=== PATIENT | female | born 1955 | race Caucasian/White ===

== ENCOUNTER 2024-03-09 07:03 | Day surgery (SDC) | payer MEDICARE ==
[2024-03-09] MEDS ORDERED: Decadron 4 MG INJ IV ONE (07:04)
[2024-03-09] MEDS ORDERED: LIDOCAINE HCL 1% 50 MG/5 ML VL PF IJ ONE (07:04)
[2024-03-09] MEDS ORDERED: Sodium Chloride 0.9(Preservative Free) 10 ML IJ ONE (07:04)
[2024-03-09] MEDS ORDERED: Depo-Medrol 40 MG/ML IM ONE (07:04)
[2024-03-09] MEDS ORDERED: DIPRIVAN 200 MG/20 ML IV ONE (08:30)
--- NOTE | 2024-03-09 11:02 | XRAY ---
Indication: Bilateral piriformis injection. Intraoperative fluoroscopy provided for 22 seconds. 2 digital spot image submitted for interpretation demonstrates posterior needle tip projecting over the expected left and right piriformis. Small amount of contrast injected for needle tip placement. Correlate with intraoperative findings/report.
--- NOTE | 2024-03-09 11:02 | XRAY ---
Indication: Caudal DUNCAN. Intraoperative fluoroscopy provided for 19 seconds. 2 digital spot image submitted for interpretation demonstrates caudal needle tip projecting mid sacrum. Small amount of contrast injected for needle tip placement. Correlate with intraoperative findings/report.
--- NOTE | 2024-03-09 11:27 | XRAY ---
19 seconds of fluoroscopy was used in surgery for a caudal DUNCAN.
--- NOTE | 2024-03-09 11:28 | XRAY ---
22 seconds of fluoroscopy was used in surgery for a bilateral piriformis injection.
[2024-03-09] MEDS ORDERED: Lactated Ringers 1,000 ML IV ONE (11:45)
== END 2024-03-09 09:14 | disposition home or self-care (01) ==
LOC: SDC-PAIN 07:03
PROVIDERS: ATTEND Psychiatry & Neurology Pain Medicine
DX: M54.16 Radiculopathy, lumbar region (principal); M79.18 Myalgia, other site; E11.9 Type 2 diabetes mellitus without complications
CPT/HCPCS: 20553; 62323; 72170; 72220; 77002; 77003; 82947; J1010; J1100; J2001; J2704; Q9966

== ENCOUNTER 2024-04-20 08:09 | Day surgery (SDC) | payer MEDICARE ==
[2024-04-20] MEDS ORDERED: BUPIVACAINE 0.5% VIAL IJ ONE (08:10)
[2024-04-20] MEDS ORDERED: Depo-Medrol 40 MG/ML IM ONE (08:10)
[2024-04-20] MEDS ORDERED: Lactated Ringers 1,000 ML IV ONE (09:04)
[2024-04-20] MEDS ORDERED: DIPRIVAN 200 MG/20 ML IV ONE (09:51)
--- NOTE | 2024-04-20 10:52 | XRAY ---
Indication: Bilateral ischial bursa injection. Intraoperative fluoroscopy provided for 34 seconds. 2 digital spot images submitted for interpretation demonstrates posterior needle tip projecting over left and right ischial tuberosity. Small amount of contrast injected for needle tip placement with contrast. Correlate with intraoperative findings/report.
--- NOTE | 2024-04-20 12:25 | XRAY ---
34 seconds of fluoroscopy was used in surgery for a bilateral ischial bursa injection.
== END 2024-04-20 10:28 | disposition home or self-care (01) ==
LOC: SDC-PAIN 08:09
PROVIDERS: ATTEND Psychiatry & Neurology Pain Medicine
DX: M70.62 Trochanteric bursitis, left hip (principal); M70.61 Trochanteric bursitis, right hip; E11.9 Type 2 diabetes mellitus without complications
CPT/HCPCS: 20610; 72170; 77002; 82947; J2704; Q9966

== ENCOUNTER 2024-08-10 10:32 | Day surgery (SDC) | payer MEDICARE ==
[2024-08-10] MEDS ORDERED: Xylocaine-Mpf 2% 5 Ml Vial IJ ONE (10:33)
[2024-08-10] MEDS ORDERED: Depo-Medrol 40 MG/ML IM ONE (10:33)
[2024-08-10] MEDS ORDERED: DIPRIVAN 200 MG/20 ML IV ONE (12:16)
--- NOTE | 2024-08-10 14:19 | XRAY ---
Indication: Bilateral L4-S1 MBB. Intraoperative fluoroscopy provided for 13 seconds. Single digital spot image submitted for interpretation demonstrates posterior needle tips projecting over the expected left and right L4-S1 nerve roots. Correlate with intraoperative findings/report.
--- NOTE | 2024-08-10 14:54 | XRAY ---
13 seconds of fluoroscopy was used in surgery for a bilateral L4-S1 MBB.
== END 2024-08-10 12:50 | disposition home or self-care (01) ==
LOC: SDC-PAIN 10:32
PROVIDERS: ATTEND Psychiatry & Neurology Pain Medicine
DX: M47.816 Spondylosis without myelopathy or radiculopathy, lumbar region (principal); E11.9 Type 2 diabetes mellitus without complications
CPT/HCPCS: 72020; 77002; 82947; J2704

== ENCOUNTER 2024-11-02 08:53 | Day surgery (SDC) | payer MEDICARE ==
[2024-11-02] MEDS ORDERED: BUPIVACAINE 0.5% VIAL IJ ONE (08:54)
[2024-11-02] MEDS ORDERED: Depo-Medrol 40 MG/ML IM ONE (08:54)
[2024-11-02] MEDS ORDERED: propofoL IV ONE (10:51)
--- NOTE | 2024-11-02 12:21 | XRAY ---
Indication: Bilateral L4-S1 MBB. Intraoperative fluoroscopy provided for 13 seconds. Single digital spot image submitted for interpretation demonstrates posterior needle tips projecting over expected left and right L4-S1 nerve roots. Correlate with intraoperative findings/report.
--- NOTE | 2024-11-02 12:49 | XRAY ---
13 seconds of fluoroscopy was used in surgery for a bilateral L4-S1 MBB.
== END 2024-11-02 11:20 | disposition home or self-care (01) ==
LOC: SDC-PAIN 08:53
PROVIDERS: ATTEND Psychiatry & Neurology Pain Medicine
DX: M47.816 Spondylosis without myelopathy or radiculopathy, lumbar region (principal); E11.9 Type 2 diabetes mellitus without complications
CPT/HCPCS: 64493; 64494; 72020; 77002; 82947; J2704

== ENCOUNTER 2024-12-01 07:49 | Day surgery (SDC) | payer MEDICARE, SELFPAY ==
[2024-12-01] MEDS ORDERED: LIDOCAINE HCL 1% 50 MG/5 ML VL IJ ONE (07:50)
[2024-12-01] MEDS ORDERED: BUPIVACAINE 0.5% VIAL IJ ONE (07:50)
[2024-12-01] MEDS ORDERED: methylPREDNISolone acetate IM ONE (07:50)
[2024-12-01] MEDS ORDERED: Lactated Ringers 500 ML IV ONE (07:56)
[2024-12-01] MEDS ORDERED: propofoL IV ONE (09:30)
--- NOTE | 2024-12-01 20:57 | XRAY ---
Indication: Right L4-S1 RFA. Intraoperative fluoroscopy provided for 20 seconds. 3 digital spot image submitted for interpretation demonstrates posterior needle tips projecting over expected right L4-S1 nerve roots. Correlate with intraoperative findings/report.
--- NOTE | 2024-12-01 21:52 | XRAY ---
20 seconds of fluoroscopy was used in surgery for a right L4-S1 RFA.
== END 2024-12-01 10:00 | disposition home or self-care (01) ==
LOC: SDC-PAIN 07:49
PROVIDERS: ATTEND Psychiatry & Neurology Pain Medicine
DX: M47.816 Spondylosis without myelopathy or radiculopathy, lumbar region (principal); E11.9 Type 2 diabetes mellitus without complications
CPT/HCPCS: 64635; 64636; 72100; 77002; 82947; J1010; J2704

== ENCOUNTER 2024-12-15 09:16 | Day surgery (SDC) | payer MEDICARE ==
[2024-12-15] MEDS ORDERED: BUPIVACAINE 0.5% VIAL IJ ONE (09:17)
[2024-12-15] MEDS ORDERED: LIDOCAINE HCL 1% 50 MG/5 ML VL IJ ONE (09:17)
[2024-12-15] MEDS ORDERED: methylPREDNISolone acetate IM ONE (09:17)
[2024-12-15] MEDS ORDERED: Lactated Ringers 500 ML IV ONE (09:40)
[2024-12-15] MEDS ORDERED: propofoL IV ONE (11:05)
--- NOTE | 2024-12-15 13:17 | XRAY ---
Indication: Left L4-S1 RFA. Intraoperative fluoroscopy provided for 18 seconds. 3 digital spot image submitted for interpretation demonstrates posterior needle tips projecting over expected left L4-S1 nerve roots. Correlate with intraoperative findings/report.
--- NOTE | 2024-12-15 14:52 | XRAY ---
18 seconds of fluoroscopy was used in surgery for a left L4-S1 RFA.
== END 2024-12-15 11:37 | disposition home or self-care (01) ==
LOC: SDC-PAIN 09:16
PROVIDERS: ATTEND Psychiatry & Neurology Pain Medicine
DX: M47.817 Spondylosis without myelopathy or radiculopathy, lumbosacral region (principal); E11.9 Type 2 diabetes mellitus without complications
CPT/HCPCS: 64635; 64636; 72100; 77002; 82947; J1010; J2704